=== PATIENT | male | born 1965 | race Caucasian/White ===

== ENCOUNTER → 2024-01-23 08:15 | Outpatient (REF) | payer BC, SELFPAY | LOC: RAD 08:15 | PROVIDERS: ATTENDING PHYSICIAN Family Medicine; REFERRING PHYSICIAN Internal Medicine Cardiovascular Disease | DX: I10 Essential (primary) hypertension (principal); R00.2 Palpitations | CPT/HCPCS: 93306; 93978 ==

== ENCOUNTER → 2024-01-24 09:08 | Outpatient (REF) | payer BC, SELFPAY | LOC: RCS 09:08 | PROVIDERS: ATTENDING PHYSICIAN Internal Medicine Cardiovascular Disease; FAMILY PHYSICIAN Family Medicine | DX: I10 Essential (primary) hypertension (principal); R06.83 Snoring | CPT/HCPCS: 93017 ==